=== PATIENT | male | born 1960 | race African-American/Black ===

== ENCOUNTER 2019-06-19 09:55 | Outpatient (CLI) | payer BC ==
--- NOTE | 2019-06-19 13:45 | MRI ---
MRI LEFT SHOULDER: Date: 06/19/19 PROVIDED CLINICAL HISTORY: Left shoulder pain. FINDINGS: The components of the rotator cuff appear intact. The long head biceps tendon appears intact and norm ally located. The glenoid labrum and glenohumeral articular cartilage are suboptimally evaluated in t he absence of joint distention. There is signal alteration in the region of the superior labrum and p osterior-superior labrum suspicious for SLAP tear with extension to involve the posterior superior la peter. The amount of fluid within the glenohumeral joint is physiologic. There is greater than physiologic s ubacromial/subdeltoid bursal fluid. Acromioclavicular joint osteoarthrosis is demonstrated without significant mass effect upon the subja cent supraspinatus. No focal concerning regional marrow or muscular signal abnormality apparent. IMPRESSION: 1. Findings suspicious for SLAP tear. 2. Acromioclavicular joint osteoarthrosis. 3. Greater than physiologic subacromial/subdeltoid bursal fluid may reflect mild bursitis. POS: OFF
== END 2019-06-19 09:56 | disposition home or self-care (01) ==
LOC: SCSMRI 09:55
PROVIDERS: ATTEND Orthopaedic Surgery
DX: S43.432A Superior glenoid labrum lesion of left shoulder, initial encounter (principal); M19.012 Primary osteoarthritis, left shoulder; M71.9 Bursopathy, unspecified

== ENCOUNTER 2019-07-03 06:24 | Outpatient (CLI) | payer BC, OTHER ==
[2019-07-03 11:28] LABS: #Basophils 0.1 thou/uL (0.0-0.2); #Eosinphils 0.2 thou/uL (0.0-0.7); #Monocytes 0.4 thou/uL (0.11-0.59); #Neutrophils 2.2 thou/uL (1.40-6.50); %Basophils 1.3 % (0.0-1.0); %Eosinophils 5.1 % (0.0-10.0); %Lymphocytes 40.2 % (21.0-51.0); %Neutrophils 45.4 % (42.0-75.0); Hemoglobin 15.3 g/dL (14.0-18.0); Mean Corpuscular HGB CONC 32.5 g/dL (32.0-36.0); Mean Corpuscular Hemoglobin 32.2 pg (27.0-31.0); Mean Corpuscular Volume 99.2 fL (78.0-98.0); Mean Platelet Volume 8.9 fL (7.4-10.4); Platelet Count 211 thou/uL (130-400); RBC Distribution Width 12.2 % (11.5-14.5); Red Blood Cell (RBC) Count 4.75 mill/uL (4.70-6.10); White Blood Cell (WBC) Count 4.9 thou/uL (4.8-10.8)
[2019-07-03 12:44] LABS: Anion Gap 14 mmol/L (10-20); BUN (Urea Nitrogen) 11 mg/dL (8.4-25.7); Calc. Creatinine Clearance 0 mL/min (70-130); Calcium 9.4 mg/dL (7.8-10.44); Carbon Dioxide 22 mmol/L (22-29); Chloride 108 mmol/L (98-107); Estimated GFR-MDRD 88; Glucose 92 mg/dL (70-105); Potassium 4.3 mmol/L (3.5-5.1); Sodium 140 mmol/L (136-145)
--- NOTE | 2019-07-04 14:10 | EKG ---
Test Reason : Blood Pressure : / mmHG Vent. Rate : 057 BPM Atrial Rate : 057 BPM P-R Int : 156 ms QRS Dur : 098 ms QT Int : 406 ms P-R-T Axes : 075 042 -47 degrees QTc Int : 395 ms Sinus bradycardia Nonspecific ST and T wave abnormality Abnormal ECG No previous ECGs available Confirmed by GE PEARCE, DR. Vázquez ([id number]) on 07/04/2019 2:10:12 PM Referred By: IERO Confirmed By:DR. Gurpreet CAROLINA MD
== END 2019-07-03 06:25 | disposition home or self-care (01) ==
LOC: LABBT 06:24
PROVIDERS: ATTEND Orthopaedic Surgery
DX: Z01.818 Encounter for other preprocedural examination (principal); S43.402A Unspecified sprain of left shoulder joint, initial encounter
CPT/HCPCS: 80048; 85025; 93005; 93010

== ENCOUNTER 2019-07-05 09:47 | Day surgery (SDC) | payer BC, OTHER ==
[2019-07-03 10:03] VITALS: BMI 25.7
[2019-07-05] MEDS ORDERED: Scopolamine 1.5 mg/72 hour Patch ONE (10:38)
[2019-07-05] MEDS ORDERED: Fentanyl 100 MCG/2 ML VIAL ONE (10:39)
[2019-07-05] MEDS ORDERED: Midazolam HCl 2 mg/2 ml Vial ONE (10:39)
[2019-07-05] MEDS ORDERED: Acetaminophen 325 MG TAB PO PRN (11:15)
[2019-07-05] MEDS ORDERED: Fentanyl 100 MCG/2 ML VIAL IV PRN (11:16)
[2019-07-05] MEDS ORDERED: Promethazine HCl 25 MG/ML VIAL IM PRN (11:16)
[2019-07-05] MEDS ORDERED: traMADol HCl 50 MG TAB PO PRN ×2 (11:16)
[2019-07-05] MEDS ORDERED: Ropivacaine 0.2% 550 ML 550 ML NERVE BLCK SCH (11:16)
[2019-07-05] MEDS ORDERED: Ketorolac Tromethamine 30 MG/ML VIAL IVP PRN (11:16)
[2019-07-05] MEDS ORDERED: Zolpidem Tartrate 5 MG TAB PO PRN (11:16)
[2019-07-05] MEDS ORDERED: Ondansetron PF 4 MG/2 ML Vial IVP PRN (11:16)
[2019-07-05] MEDS ORDERED: HYDROcodone/Acetaminophen 10/325 mg Tablet PO PRN ×2 (11:16)
[2019-07-05] MEDS ORDERED: Lidocaine 1% w/Epinephrine 1:100K 20 ML VIAL ONE (11:43)
--- NOTE | 2019-07-05 15:53 | OP ---
DATE OF PROCEDURE: 07/05/2019 PREOPERATIVE DIAGNOSIS: Left shoulder degenerative labral tear with biceps instability and impingement. POSTOPERATIVE DIAGNOSES: 1. Degenerative superior labral tear from anterior to posterior tear. 2. Degenerative inferior and posterior inferior labral tear with a large chunk of tissue, which had flap down into the axillary pouch and SLAP tear 3. Impingement. PROCEDURES PERFORMED: 1. Left shoulder arthroscopy with subacromial decompression. 2. Arthroscopic debridement and shaving of degenerative superior labral tear from anterior to posterior tear and Inferior and posterior inferior tears 3. Open biceps tenodesis. ACCOUNT EXECUTIVE: Trevon Avila PA-C ESTIMATED BLOOD LOSS: Minimal. COMPLICATIONS: None. ANESTHESIA: He did have a general anesthetic as well as a local block. DISPOSITION: He did go to recovery room in stable condition. IMPLANTS: We used an [employer] Bio[employer]posite Bio-Tenodesis screw, which is a 7 x 23. INDICATIONS: A 59-year-old male, who has been having problems with the shoulder for years. At this time, it has become unbearable and at this time, he wished to have surgery. DESCRIPTION OF PROCEDURE: After all appropriate consent forms were explained and signed, he was taken back to the operative room and at this time was given general anesthetic. Once the level of anesthesia was appropriate, he was rolled into the right lateral decubitus position with all bony prominences well-padded. Axillary roll was placed under the right axilla and a inman bag was inflated to hold this position. The arm was taken through full range of motion and then suspended with 15 pounds in standard arthroscopic fashion. The left shoulder and upper extremity than prepped and draped in standard surgical fashion. Bony anatomical landmarks were drawn out and the subacromial space was infiltrated with Marcaine with epinephrine. Posterior portal was established and scope was placed into the shoulder joint. Anterior working portal was then made using a needle localization technique. Diagnostic arthroscopy commenced. There was some obvious tearing in the anterior labrum as well as superior labrum. Further we looked, there was very minimal undersurface tear of the rotator cuff. Remaining rotator cuff insertion was intact. The articular surface of the humeral head and glenoid were in good condition. In the axillary pouch, there was a large chunk of tissue, which had ripped off the inferior labrum and the posterior inferior labrum was also degenerative. At this time, the shaver was introduced to remove this large chunk of tissue inferiorly as well as debride the partial cuff tear in the anterior as well as the posterior inferior labrum. The SERFAS energy was then used to coagulate any brisk venous bleeding. An 18-gauge needle was then used to artis the biceps tendon and a stitch was placed through the tendon. The SERFAS energy was then used to cut the tendon off its insertion onto the superior labrum. The scope was then removed and replaced into the subacromial space. Lateral working portal was made and copious amount of bursal tissue was removed from off the underlying rotator cuff. The rotator cuff itself was intact. Small bony decompression was performed using the SERFAS energy as well as a shaver. At this time, scope was removed. Shoulder was drained. A 15 blade was used to make an incision to perform our biceps tenodesis. Bovie was used to coagulate any brisk venous bleeding. Deltoid fascia was then entered sharply and finger dissection was used to go in-line with the fibers of the deltoid to the underlying transverse humeral ligament. This was opened up and any brisk venous bleeding was coagulated. Biceps tendon was pulled onto the wound. It was then sutured in standard fashion followed by removing the intra-articular portion of the biceps tendon. This was measured to be much smaller than a 7. Therefore, a 7 reamer was used. A pin was placed. The 7 mm reamer was then used to ream to a depth of 25 and a 7 x 23 BioComposite Bio-Tenodesis screw was then used to fixate our biceps tendon. The sutures were tied over top of this, so the screw would not back out. At this time, we thoroughly irrigated and dried this small incision. We allowed our deltoid to close upon itself. A running Vicryl was used to close our deltoid fibers and 2-0 Vicryl and nylon sutures were used to close the incision. Each portal was then closed with some nylon suture as well. Bulky sterile dressing was applied. The patient was awakened. He was taken to the recovery room in stable condition. All counts were correct at the end of the case and he did receive preoperative IV antibiotics. Job ID: [id number] [facility]
== END 2019-07-05 14:52 | disposition home or self-care (01) ==
LOC: SDC 09:47
PROVIDERS: ATTEND Orthopaedic Surgery
PROC: 0RBK4ZZ Excision of Left Shoulder Joint, Percutaneous Endoscopic Approach (ICD-10-PCS; principal; 2019-07-05)
PROC: 3E0T3BZ Introduction of Anesthetic Agent into Peripheral Nerves and Plexi, Percutaneous Approach (ICD-10-PCS; principal; 2019-07-05)
PROC: 0RHK04Z Insertion of Internal Fixation Device into Left Shoulder Joint, Open Approach (ICD-10-PCS; principal; 2019-07-05)
PROC: 0LS20ZZ Reposition Left Shoulder Tendon, Open Approach (ICD-10-PCS; principal; 2019-07-05)
PROC: 0RNK4ZZ Release Left Shoulder Joint, Percutaneous Endoscopic Approach (ICD-10-PCS; principal; 2019-07-05)
DX: M75.112 Incomplete rotator cuff tear or rupture of left shoulder, not specified as traumatic (principal); S43.432A Superior glenoid labrum lesion of left shoulder, initial encounter; S43.492A Other sprain of left shoulder joint, initial encounter; M25.812 Other specified joint disorders, left shoulder; M25.312 Other instability, left shoulder; G89.18 Other acute postprocedural pain; Z88.5 Allergy status to narcotic agent; Z98.890 Other specified postprocedural states
CPT/HCPCS: A4306; C1713; J0690; J2250; J2795; J3010